=== PATIENT | female | born 1995 | race Caucasian/White ===

== ENCOUNTER 2021-11-27 11:40 | Outpatient (CLI) | payer BC, MEDICAID ==
[2021-11-27 13:24] VITALS: BP 126/78
[2021-11-27 13:25] VITALS: BP 126/78
[2021-11-27 14:32] LABS: GLUCOMETER DEV NAME(LOC) POC.BV
[2021-11-27 19:36] VITALS: BP 113/72
[2021-11-27 20:00] VITALS: BP 113/72
[2021-11-27] MEDS ORDERED: TraZODone HCL 50 MG TABLET PO SCH (21:00)
[2021-11-27] MEDS: QUEtiapine FUMARATE 25 MG TABLET PO SCH (21:23)
[2021-11-28 08:09] VITALS: BP 107/55
[2021-11-28] MEDS: SERTRALINE HCL 100 MG TABLET PO SCH ×2 (08:16→08:50)
[2021-11-28] MEDS: QUEtiapine FUMARATE 25 MG TABLET PO SCH (08:51)
== END 2021-11-28 09:40 | disposition home or self-care (01) ==
LOC: CSU 11:40
PROVIDERS: ATTEND Psychiatry & Neurology Psychiatry
DX: F39 Unspecified mood [affective] disorder (principal); F41.9 Anxiety disorder, unspecified; F25.9 Schizoaffective disorder, unspecified; F43.20 Adjustment disorder, unspecified; F19.20 Other psychoactive substance dependence, uncomplicated; F15.20 Other stimulant dependence, uncomplicated; Z20.822 Contact with and (suspected) exposure to COVID-19
CPT/HCPCS: 90792; Z7610